=== PATIENT | male | born 1940 | race Caucasian/White ===

== ENCOUNTER 2021-01-30 11:45 | Emergency (ER) | payer OTHER, MEDICARE ==
[2021-01-30] MEDS ORDERED: VIBRAMYCIN100 MG PO (14:07)
== END 2021-01-30 14:56 | disposition home or self-care (01) ==
LOC: FER 11:45
DX: L02.414 Cutaneous abscess of left upper limb (principal); E11.9 Type 2 diabetes mellitus without complications; J44.9 Chronic obstructive pulmonary disease, unspecified; I10 Essential (primary) hypertension; Z88.0 Allergy status to penicillin; Z87.891 Personal history of nicotine dependence
CPT/HCPCS: 73080

== ENCOUNTER → 2021-07-30 | Day surgery (SDC) | payer MEDICARE ==
[~2021-07-30] VITALS: Ht 170.2 cm; Wt 79.8 kg
[~2021-07-30] MED LIST: ASPIRIN EC81 MG PO; HCTZ25 MG PO; IRON325 M1 PO; LOPRESSOR25 MG PO; LOVASTATIN PO; METFORMIN HCL500 MG PO; PRILOSEC20 MG PO; PROAIR HFA8.5 GM INH; VIBRAMYCIN100 MG PO; WIXELA 250-501 EACH INH; ZOCOR40 MG PO
[2021-07-30 14:34] LABS: HCT 44.3 % (42.0-52.0); HGB 15.1 g/dl (13.2-18.0); MCH 31.3 pg (25.0-31.0); MCHC 34.1 g/dL (32.0-36.0); MCV 91.7 fL (78.0-100.0); RBC 4.83 M/uL (4.70-6.00); RDW 14.6 % (11.5-14.0); WBC 11.6 K/uL (4.0-10.5)
[2021-07-30 15:07] LABS: BUN/CREAT RATIO (CALC) 19.5 RATIO; CREATININE 0.87 mg/dL (0.67-1.17); POTASSIUM 3.9 mmol/L (3.5-5.1)
== END | disposition home or self-care (01) ==
LOC: FAS 13:13
PROVIDERS: Anesthesiology
DX: M71.122 Other infective bursitis, left elbow (principal); M25.722 Osteophyte, left elbow; Z88.0 Allergy status to penicillin
CPT/HCPCS: 36415; 80048; 82962; 93005; J7120